=== PATIENT | male | born 1990 | race Caucasian/White ===

== ENCOUNTER 2016-10-09 06:47 | Emergency (ER) | payer OTHER ==
--- NOTE | 2016-10-09 09:45 | ED ORDER SUMMARY ---
..... Patient: ELIECER MONTES OrderSheet [facility] VisitID: [id number] [address] [place] [address] 26y, M Registration Date/Time: 10/09/2016 ORDER SHEET Weight: 172.3 kg (stated) Allergies: No Known Drug Allergy GENERAL ORDERS: CBC w Diff Urgent (07:06 10/09/2016 DDavis R.N. per protocol) (7:06 DDavis R.N.) CMP Urgent (07:06 10/09/2016 DDavis R.N. per protocol) (7:06 DDavis R.N.) Amylase Urgent (07:06 10/09/2016 DDavis R.N. per protocol) (7:06 DDavis R.N.) Lipase Urgent (07:06 10/09/2016 DDavis R.N. per protocol) (7:06 DDavis R.N.) MEDICATION ORDERS: GI Cocktail WHITE PO 30 mL with Lidocaine Viscous Mouth/Throat 15 mL, Maalox Plus Oral 15 mL (NOW) (09:13 10/09/2016 Aliya Davey) (9:22 LSullivan R.N.) IV FLUIDS: IV Saline Lock (07:06 10/09/2016 DDavis R.N. per protocol) (7:06 DDavis R.N.) ORDER SHEET NOTES: [Electronically signed by Tanner Waldrop Dr. (09:52 10/09/2016)] [Electronically signed by Donna Moreno R.N. (10:05 10/13/2016)] [Electronically locked/signed by Donna Moreno R.N. (10:10/13/2016)]
--- NOTE | 2016-10-09 09:45 | ED NURSING NOTES ---
Clinical Report - Nurses [facility] [address] [place] [address] 10/09/2016 6:49 Patient: ELIECER MONTES TRIAGE Triage time 06:55. Acuity: LEVEL 3. Chief Complaint: ABDOMINAL PAIN. Alert. SEPSIS SCREEN: Sepsis Screen. Negative (no infection suspected/documented). [place] COMA SCORE: [place] Coma Scale: 15- eyes open spontaneously (4); best verbal response- oriented x 4 (5); best motor response- obeys commands (6). --07:01 aRul Canseco R.N. 06:55 10/09/16. BP: 134/89. HR: 77 (regular). RR: 20 (regular and unlabored). O2 saturation: 99%. Temp: 97.6 F. Pain level now: 01/03. --07:01 Raul Canseco R.N. Weight: 172.3 kg stated. Height/Length: 73 inches Per Patient. BMI: 50.1. --06:54 Raul Canseco R.N. Medications Citalopram Hydrobromide Oral. --06:56 Raul Canseco R.N. Allergies No Known Drug Allergy. --06:56 Raul Canseco R.N. History Arrived by private vehicle. Historian: patient. Unaccompanied. Onset. (7 days ago). ( with blood tinged). He has had vomiting. The vomiting has been blood-tinged. SOCIAL HX: Heavy tobacco smoker (cigarette)- less than 1 pack per day. Occasional alcohol use. No drug use. No marijuana. No recent travel. ABUSE ASSESSMENT: No report of abuse. SELF HARM ASSESSMENT: A self harm assessment was performed. The patient answered "no" to the question "Have you recently felt down, depressed, or hopeless?", "Have you noticed less interest or pleasure in doing things?", "Do you have thoughts of harming or killing yourself?", "Are you here because you tried to hurt yourself?", "Have you ever tried to hurt yourself before today?" and "Have you recently had thoughts about harming or killing others?". FALL RISK ASSESSMENT: Fall risk assessment completed. No fall risk identified. NUTRITIONAL RISK ASSESSMENT: The nutritional risk assessment revealed no deficiencies. FUNCTIONAL ASSESSMENT: Functional assessment: no impairments noted. LEARNING NEEDS ASSESSMENT: The learning needs assessment revealed no barriers. SKIN INTEGRITY ASSESSMENT: Skin integrity risk assessment completed. No skin integrity risk identified. --07:01 Raul Canseco R.N. PROBLEMS: Depression. --06:58 Raul Canseco R.N. 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 --06:58 Raul Canseco R.N. Interventions ID band on patient. To treatment room. --07:01 Raul Canseco R.N. PHYSICAL ASSESSMENT Ambulatory to room. ( Last BM yesterday, states that it was brown, denies seeing blood in it.). GENERAL / NEURO / PSYCH: Alert. Oriented X 4. HEENT: Mucous membranes are pink. RESPIRATORY: Respirations not labored. Breath sounds within normal limits. CVS: Normal sinus rhythm noted. No abnormal heart sounds. Capillary refill less than 2 seconds. GI / : Abdomen soft. Abdominal tenderness in the upper abdomen and epigastric area. Bowel sounds within normal limits. SKIN: Skin is warm and dry. --07:04 Raul Canseco R.N. NURSING PROGRESS NOTES 07:05 10/09/2016 Site #1 started via IV in the right antecubital space with an 20g angiocath, with aseptic technique and good blood return; one attempt. Blood drawn: rainbow set. Labeled in the presence of the patient and sent to the lab. Saline lock flushed with 10 mL saline. --07:05 Raul Canseco R.N. Patient gowned. Head of bed elevated. Reassurance given. Two patient identifiers checked. Call light placed in reach. Side rails up x 1. Bed placed in lowest position. Brakes of bed on. Patient ready for evaluation- chart flagged. Patient waiting for evaluation. --07:05 Raul Canseco R.N. ( Report given to Donna Alvarez RN, Care transferred to her.). --07:42 Raul Canseco R.N. 07:42. Care transferred and report received. --07:52 Donna Moreno R.N. <<STRICKEN ENTRY-- 09:22 10/09/2016 GI COCKTAIL WHITE (Simethicone) PO 30 mL given. Allergies verified and confirmed 5 rights. --09:22 Donna Moreno R.N. --END STRIKE>> Change to Details. --09:22 Donna Moreno R.N. 09:22 10/09/2016 GI COCKTAIL WHITE (Simethicone) PO 30 mL given. Allergies verified and confirmed 5 rights. (with lidocaine 15 mls). --09:22 Donna Moreno R.N. 09:23 10/09/16. ( Pt ambulated to bathroom after GI cocktail, told not to drink any water.). --09:23 Donna Moreno R.N. 09:37 10/09/16. Overall patient status is improved- he states feels better (Pt states pain is almost completely gone). --09:37 Donna Moreno R.N. DISPOSITION / DISCHARGE late entry -. Departure time: 1012. Condition at departure: improved. No learning barriers present. Discharge instructions provided and reviewed with the patient. Reviewed referral to family practice. Verbalized understanding. Written instructions provided. The patient was discharged home. He left the Emergency Department ambulatory and via private vehicle. FALL RISK ASSESSMENT: Fall risk assessment completed. No fall risk identified. --10:03 Donna Moreno R.N. 10:08 10/09/16. BP: 105/58. HR: 75. RR: 18. O2 saturation: 100%. Temp: deferred. Pain level now: 07/06. --10:03 Donna Moreno R.N. Locked/Released at 10/13/2016 10:05 by Donna Moreno R.N.
--- NOTE | 2016-10-09 09:45 | ED CLINICAL REPORT ---
Clinical Report - Physicians/Mid Levels [facility] [address] [address] 10/09/2016 6:49 Patient: ELIECER MONTES Time Seen: 06:59; initial patient contact. Arrived- By private vehicle. Historian- patient. HISTORY OF PRESENT ILLNESS Chief Complaint: ABDOMINAL PAIN. At its maximum, severity described as moderate. When seen in the E.D., it was almost gone. Modifying factors. Not worsened by anything. Not relieved by anything. It is described as burning. No radiation. It is described as located in the epigastric area. This started about 1 week ago and is still present. It was gradual in onset and has been intermittent. The patient has had nausea, vomiting and diarrhea. No loss of appetite. No recent travel. Similar symptoms previously: None. Recent medical care: Not recently seen/assessed. REVIEW OF SYSTEMS No constipation, black stools, fever or chills. He has had hematemesis. It has occurred twice and has contained blood flecks. All systems otherwise negative, except as recorded above. PAST HISTORY Depression. ASURGERIES: Unknown intestine surgery during infancy. SOCIAL HISTORY Current every day smoker. History of drug use: marijuana. No alcohol use. ADDITIONAL NOTES The nursing notes have been reviewed with agreement regarding the chief complaint, PMH and patient medications and allergies. PHYSICAL EXAM Vital Signs: 10/09/2016 06:55 BP: 134/89. HR: 77. RR: 20. O2 saturation: 99%. Temp: 97.6 F. Pain level now: 7/10. Have been reviewed as normal. Appearance: Alert. Oriented X3. No acute distress. Eyes: Eyes normal inspection. No scleral icterus. ENT: Dry mucous membranes present. CVS: Normal heart rate and rhythm. Heart sounds normal. Respiratory: No respiratory distress. Breath sounds normal. Abdomen: Soft. Mild tenderness in the epigastric area. No guarding, rebound tenderness or Ribeiro's sign present. Bowel sounds normal. No mass. Back: Normal inspection. No CVA tenderness. Skin: Normal skin color. No rash. Extremities: No lower extremity edema. Neuro: Oriented X 3. LABS, X-RAYS, AND EKG Laboratory Tests: CBC w Diff: (SHARON: 10/09/2016 07:02) ( MsgRcvd 10/09/2016 07:13) Final results Test Result Flag Units (Reference) WHITE BLOOD COUNT 7.1 K/uL (4.5-11.5) RED BLOOD COUNT 5.40 M/uL (4.50-5.90) HEMOGLOBIN 15.0 gm/dL (13.5-17.5) HEMATOCRIT 45.3 % (41.0-53.0) MEAN CELL VOLUME 84 fL (80-100) MEAN CORPUSCULAR HGB 28 pg (26-34) MEAN CORPUSCULAR HGB CONC 33 g/dL (31-37) RED CELL DISTRIBUTION WIDTH 13.7 % (11.6-14.8) PLATELET COUNT 206 K/uL (150-400) NEUTROPHIL % 49.1 L % (50-75) LYMPH % 36.5 % (25-40) MONO % 8.5 % (3-14) EOSINOPHIL % 5.3 H % (0-4) BASOPHIL % 0.6 % (0-2) CMP: (SHARON: 10/09/2016 07:02) ( MsgRcvd 10/09/2016 07:28) Final results Test Result Flag Units (Reference) GLUCOSE 103 mg/dL (70-110) BUN 14 mg/dL (7-18) CREATININE 0.8 mg/dL (0.6-1.3) Estimated GFR >60 mL/min Estimated GFR- >60 mL/min Note: Persistent reduction over 3 months in eGFR<60 mL/min/1.73 m2 defines CKD. Patients with eGFR values>=60 mL/min/1.73 m2 may also have CKD if evidence ofpersistent proteinuria. Additional information may be foundat www.kidney.org. SODIUM 143 mmol/L (136-145) POTASSIUM 3.8 mmol/L (3.5-5.1) CHLORIDE 106 mmol/L (98-107) CARBON DIOXIDE 28 mmol/L (21-32) CALCIUM 8.9 mg/dL (8.5-10.1) TOTAL PROTEIN 7.5 g/dL (6.4-8.2) ALBUMIN 3.7 g/dL (3.3-5.0) BILIRUBIN, TOTAL 0.3 mg/dL (0.0-1.0) ALKALINE PHOSPHATASE 55 U/L (46-116) AST (SGOT) 19 U/L (15-37) ALT (SGPT) 36 U/L (12-78) LIPASE 98 U/L (73-393) AMYLASE 24 L U/L (25-115) . PROGRESS AND PROCEDURES Course of Care: GI Cocktail composed of 15 mL viscous lidocaine and antacid PO given. Physical exam findings are improved. Symptoms much better. Disposition: Discharged home in good and improved condition. Condition: good. CLINICAL IMPRESSION Acute viral gastroenteritis. INSTRUCTIONS Your Current Medications: CONTINUE TAKING THE FOLLOWING MEDICATIONS: Citalopram Hydrobromide Oral. Prescription Medications: Zofran (orally disintegrating tablets) 4 mg: take 1 orally every 6 hours as needed for nausea and vomiting. Dispense ten (10). No refill. Substitution is permissible. Zantac 150 mg: take 1 orally every 12 hours. Dispense sixty (60). No refills. Substitution is permissible. Follow-up: Follow up with your doctor in about two days. Call for an appointment. Screening today revealed the patient's blood pressure to be in the pre-hypertensive range. The patient should follow up with a primary care provider for blood pressure management. (Electronically signed by Tanner Waldrop Dr. 10/09/2016 9:52)
--- NOTE | 2016-10-09 09:45 | ED ORDER SUMMARY ---
..... Patient: ELIECER MONTES OrderSheet [facility] VisitID: [id number] [address] [place] [address] 26y, M Registration Date/Time: 10/09/2016 ORDER SHEET Weight: 172.3 kg (stated) Allergies: No Known Drug Allergy GENERAL ORDERS: CBC w Diff Urgent (07:06 10/09/2016 DDavis R.N. per protocol) (7:06 DDavis R.N.) CMP Urgent (07:06 10/09/2016 DDavis R.N. per protocol) (7:06 DDavis R.N.) Amylase Urgent (07:06 10/09/2016 DDavis R.N. per protocol) (7:06 DDavis R.N.) Lipase Urgent (07:06 10/09/2016 DDavis R.N. per protocol) (7:06 DDavis R.N.) MEDICATION ORDERS: GI Cocktail WHITE PO 30 mL with Lidocaine Viscous Mouth/Throat 15 mL, Maalox Plus Oral 15 mL (NOW) (09:13 10/09/2016 Aliya Davey) (9:22 LSullivan R.N.) IV FLUIDS: IV Saline Lock (07:06 10/09/2016 DDavis R.N. per protocol) (7:06 DDavis R.N.) ORDER SHEET NOTES: [Electronically signed by Tanner Waldrop Dr. (09:52 10/09/2016)] [Electronically signed by Donna Moreno R.N. (10:05 10/13/2016)] [Electronically locked/signed by Donna Moreno R.N. (10:10/13/2016)]
--- NOTE | 2016-10-13 10:06 | ED DISCHARGE INSTRUCTIONS ---
Patient: ELIECER MONTES General Instructions [facility] VisitID: [id number] [place] [address] 26y, M Registration Date/Time: 10/09/2016 Acute viral gastroenteritis. INSTRUCTIONS Your Current Medications: CONTINUE TAKING THE FOLLOWING MEDICATIONS: Citalopram Hydrobromide Oral. Prescription Medications: Zofran (orally disintegrating tablets) 4 mg: take 1 orally every 6 hours as needed for nausea and vomiting. Dispense ten (10). No refill. Substitution is permissible. Zantac 150 mg: take 1 orally every 12 hours. Dispense sixty (60). No refills. Substitution is permissible. Follow-up: Follow up with your doctor in about two days. Call for an appointment. Screening today revealed the patient's blood pressure to be in the pre-hypertensive range. The patient should follow up with a primary care provider for blood pressure management. ADDITIONAL INFORMATION Viral Gastroenteritis (6Yr-Adult) Gastroenteritis is another name for thestomach flu.It is most often caused by a virus that affects the stomach and intestinal tract. Symptoms include stomach cramping and fever, vomiting and/or diarrhea, and can last from 2 to 7 days. The danger from repeated vomiting or diarrhea is dehydration. This is the loss of too much water and minerals from the body. When this occurs, body fluids must be replaced. Antibiotics are not effective for this illness, but simple home treatment will be helpful. Home Care If symptoms are severe, rest at home for the next 24 hours. Avoid tobacco, caffeine, and alcohol use, which can worsen symptoms. Acetaminophen (Tylenol) or ibuprofen (Motrin, Advil) may be usedfor fever or pain unless another medication was prescribed. NOTE: If you have chronic liver or kidney disease or ever had a stomach ulcer or GI bleeding, talk with your doctor before using these medicines. Aspirin should never be used in anyone under 18 years of age who is ill with a fever. It may cause severe liver damage. If medicines for diarrhea or vomiting were prescribed, be sure they are takenonly as directed. If vomiting, drink small amounts of clear fluids (such as water, sports drinks, clear sodas) at frequent intervals to prevent dehydration. Start with 1 to 2 tablespoons every 10 minutes. Once vomiting stops, follow these guidelines: During The First 12 To 24 Hours follow the diet below: Beverages: Sport drinks like Gatorade, soft drinks without caffeine; nida bogdan, mineral water (plain or flavored), decaffeinated tea and coffee. Soups: Clear broth, consomm and bouillon Desserts: Plain gelatin (Jell-O), Popsicles and fruit juice bars. During The Next 24 Hours you may add the following to the above: Hot cereal, plain toast, bread, rolls, crackers Plain noodles, rice, mashed potatoes, chicken noodle or rice soup Unsweetened canned fruit (avoid pineapple), bananas Limit fat intake to less than 15 grams per day by avoiding margarine, butter, oils, mayonnaise, sauces, gravies, fried foods, peanut butter, meat, poultry, and fish. Limit fiber; avoid raw or cooked vegetables, fresh fruits (except bananas), and bran cereals. Limit caffeine and chocolate. Do not use spices or seasonings except salt. During The Next 24 Hours The patient can gradually resume a normal diet as symptoms lessen. Preventing Spread Hand washing with soap and water is the best way to prevent the spread of viruses. Caregivers should wash their hands before andafter touching the sick person. The sick person, as well as everyone in the family,should wash their hands after using the toilet and before meals. Clean the toilet after each use. People with diarrhea should not prepare food for others. If you are preparing your own foods, wash your hands before and after. Follow Up with your doctor as advised. Call your doctor if you are not improving over the next 2 to 3 days. If a stool (diarrhea) sample was taken, you may call in 2 days (or as directed) for the results. Get Prompt Medical Attention if any of the following occur: Increasing abdominal pain Continued vomiting (unable to keep liquids down) Frequent diarrhea (more than 5 times a day) Blood in vomit or stool (black or red color) Dark urine, reduced urine output, or extreme thirst Weakness, dizziness, fainting Drowsiness, confusion, stiff neck, or seizure Fever of 100.4F (38C) oral or higher, not better with fever medication New rash Ondansetron Oral disintegrating tablet What is this medicine? ONDANSETRON (on JG se khanh) is used to treat nausea and vomiting caused by chemotherapy. It is also used to prevent or treat nausea and vomiting after surgery. How should I use this medicine? These tablets are made to dissolve in the mouth. Do not try to push the tablet through the foil backing. With dry hands, peel away the foil backing and gently remove the tablet. Place the tablet in the mouth and allow it to dissolve, then swallow. While you may take these tablets with water, it is not necessary to do so. Talk to your gravel weigher regarding the use of this medicine in children. Special care may be needed. What side effects may I notice from receiving this medicine? Side effects that you should report to your doctor or health foster care worker as soon as possible: allergic reactions like skin rash, itching or hives, swelling of the face, lips, or tongue breathing problems dizziness fast or irregular heartbeat feeling faint or lightheaded, falls fever and chills swelling of the hands and feet tightness in the chest Side effects that usually do not require medical attention (report to your doctor or health foster care worker if they continue or are bothersome): constipation or diarrhea headache What may interact with this medicine? Do not take this medicine with any of the following medications: -apomorphine -cisapride -dofetilide -dronedarone -pimozide -thioridazine -ziprasidone This medicine may also interact with the following medications: -carbamazepine -phenytoin -rifampicin -tramadol -other medicines that prolong the QT interval (cause an abnormal heart rhythm) What if I miss a dose? If you miss a dose, take it as soon as you can. If it is almost time for your next dose, take only that dose. Do not take double or extra doses. Where should I keep my medicine? Keep out of the reach of children. Store between 2 and 30 degrees C (36 and 86 degrees F). Throw away any unused medicine after the expiration date. What should I tell my health care provider before I take this medicine? They need to know if you have any of these conditions: heart disease history of irregular heartbeat liver disease low levels of magnesium or potassium in the blood an unusual or allergic reaction to ondansetron, granisetron, other medicines, foods, dyes, or preservatives or trying to get breast-feeding What should I watch for while using this medicine? Check with your doctor or health foster care worker as soon as you can if you have any sign of an allergic reaction. Ranitidine Hydrochloride Oral tablet What is this medicine? RANITIDINE (ra CLAUDIA spencer) is a type of antihistamine that blocks the release of stomach acid. It is used to treat stomach or intestinal ulcers. It can relieve ulcer pain and discomfort, and the heartburn from acid reflux. How should I use this medicine? Take this medicine by mouth with a glass of water. Follow the directions on the prescription label. If you only take this medicine once a day, take it at bedtime. Take your medicine at regular intervals. Do not take your medicine more often than directed. Do not stop taking except on your doctor's advice. Talk to your gravel weigher regarding the use of this medicine in children. Special care may be needed. What side effects may I notice from receiving this medicine? Side effects that you should report to your doctor or health foster care worker as soon as possible: agitation, nervousness, depression, hallucinations allergic reactions like skin rash, itching or hives, swelling of the face, lips, or tongue breast enlargement in both males and females breathing problems redness, blistering, peeling or loosening of the skin, including inside the mouth unusual bleeding or bruising unusually weak or tired vomiting yellowing of the skin or eyes Side effects that usually do not require medical attention (report to your doctor or health foster care worker if they continue or are bothersome): constipation or diarrhea dizziness headache nausea What may interact with this medicine? atazanavir delavirdine gefitinib glipizide ketoconazole midazolam procainamide propantheline triazolam warfarin What if I miss a dose? If you miss a dose, take it as soon as you can. If it is almost time for your next dose, take only that dose. Do not take double or extra doses. Where should I keep my medicine? Keep out of the reach of children. Store at room temperature between 15 and 30 degrees C (59 and 86 degrees F). Protect from light and moisture. Keep container tightly closed. Throw away any unused medicine after the expiration date. What should I tell my health care provider before I take this medicine? They need to know if you have any of these conditions: kidney disease liver disease porphyria an unusual or allergic reaction to ranitidine, other medicines, foods, dyes, or preservatives or trying to get breast-feeding What should I watch for while using this medicine? Tell your doctor or health foster care worker if your condition does not start to get better or gets worse. You may need to take this medicine for several days as prescribed before your symptoms get better. Finish the full course of tablets prescribed, even if you feel better. Do not smoke cigarettes or drink alcohol. These increase irritation in your stomach and can lengthen the time it will take for ulcers to heal. Cigarettes and alcohol can also make acid reflux or heartburn worse. If you get black, tarry stools or vomit up what looks like coffee grounds, call your doctor or health foster care worker at once. You may have a bleeding ulcer. You have been given the following additional information: Gastroenteritis, Viral (6Y-Adult) Ondansetron Oral disintegrating tablet Ranitidine Hydrochloride Oral tablet (Electronically signed by Tanner Waldrop Dr. 10/09/2016 9:52)
--- NOTE | 2016-10-13 10:06 | ED MAR SUMMARY ---
..... Medication Administration Record [facility] [address] [place] [address] Patient: ELIECER MONTES Visit ID: [id number] 26y, M Weight: 172.3 kg Height/Length: 73 in BMI: 50.1 ALLERGIES: No Known Drug Allergy Given 09:22 10/09/2016 Donna Moreno R.N. Medication Administered: GI COCKTAIL WHITE [PO] (SIMETHICONE), Dose: 30 mL PO. Medication Ordered: GI Cocktail WHITE PO 30 mL with Lidocaine Viscous Mouth/Throat 15 mL, Maalox Plus Oral 15 mL (NOW).
--- NOTE | 2016-10-13 10:06 | ED MED RECONCILIATION SUMMARY ---
Patient: ELIECER MONTES Medication Reconciliation Report [facility] VisitID: [id number] [address] [place] [address] 26y, M Registration Date/Time: 10/09/2016 Weight: 172.3 kg Height/Length: 73 in. BMI: 50.1 ALLERGIES: No Known Drug Allergy The patient's Home Medications are listed below: CONTINUE TAKING THE FOLLOWING MEDICATIONS: Citalopram Hydrobromide Oral The source(s) of the original Home Medication information: Not obtained. The following Medications were given to the patient in the Emergency Department: GI COCKTAIL WHITE [PO] PO 30 mL, administered: 10/09/2016 9:22:00 AM The following Medications were prescribed to the patient: Zofran (orally disintegrating tablets) 4 mg: take 1 orally every 6 hours as needed for nausea and vomiting. Dispense ten (10). No refill. Substitution is permissible. -- Tanner Waldrop Dr. Zantac 150 mg: take 1 orally every 12 hours. Dispense sixty (60). No refills. Substitution is permissible. -- Tanner Waldrop Dr.
--- NOTE | 2016-10-13 10:06 | ED DISCHARGE INSTRUCTIONS ---
Patient: ELIECER MONTES General Instructions [facility] VisitID: [id number] [place] [address] 26y, M Registration Date/Time: 10/09/2016 Acute viral gastroenteritis. INSTRUCTIONS Your Current Medications: CONTINUE TAKING THE FOLLOWING MEDICATIONS: Citalopram Hydrobromide Oral. Prescription Medications: Zofran (orally disintegrating tablets) 4 mg: take 1 orally every 6 hours as needed for nausea and vomiting. Dispense ten (10). No refill. Substitution is permissible. Zantac 150 mg: take 1 orally every 12 hours. Dispense sixty (60). No refills. Substitution is permissible. Follow-up: Follow up with your doctor in about two days. Call for an appointment. Screening today revealed the patient's blood pressure to be in the pre-hypertensive range. The patient should follow up with a primary care provider for blood pressure management. ADDITIONAL INFORMATION Viral Gastroenteritis (6Yr-Adult) Gastroenteritis is another name for thestomach flu.It is most often caused by a virus that affects the stomach and intestinal tract. Symptoms include stomach cramping and fever, vomiting and/or diarrhea, and can last from 2 to 7 days. The danger from repeated vomiting or diarrhea is dehydration. This is the loss of too much water and minerals from the body. When this occurs, body fluids must be replaced. Antibiotics are not effective for this illness, but simple home treatment will be helpful. Home Care If symptoms are severe, rest at home for the next 24 hours. Avoid tobacco, caffeine, and alcohol use, which can worsen symptoms. Acetaminophen (Tylenol) or ibuprofen (Motrin, Advil) may be usedfor fever or pain unless another medication was prescribed. NOTE: If you have chronic liver or kidney disease or ever had a stomach ulcer or GI bleeding, talk with your doctor before using these medicines. Aspirin should never be used in anyone under 18 years of age who is ill with a fever. It may cause severe liver damage. If medicines for diarrhea or vomiting were prescribed, be sure they are takenonly as directed. If vomiting, drink small amounts of clear fluids (such as water, sports drinks, clear sodas) at frequent intervals to prevent dehydration. Start with 1 to 2 tablespoons every 10 minutes. Once vomiting stops, follow these guidelines: During The First 12 To 24 Hours follow the diet below: Beverages: Sport drinks like Gatorade, soft drinks without caffeine; nida bogdan, mineral water (plain or flavored), decaffeinated tea and coffee. Soups: Clear broth, consomm and bouillon Desserts: Plain gelatin (Jell-O), Popsicles and fruit juice bars. During The Next 24 Hours you may add the following to the above: Hot cereal, plain toast, bread, rolls, crackers Plain noodles, rice, mashed potatoes, chicken noodle or rice soup Unsweetened canned fruit (avoid pineapple), bananas Limit fat intake to less than 15 grams per day by avoiding margarine, butter, oils, mayonnaise, sauces, gravies, fried foods, peanut butter, meat, poultry, and fish. Limit fiber; avoid raw or cooked vegetables, fresh fruits (except bananas), and bran cereals. Limit caffeine and chocolate. Do not use spices or seasonings except salt. During The Next 24 Hours The patient can gradually resume a normal diet as symptoms lessen. Preventing Spread Hand washing with soap and water is the best way to prevent the spread of viruses. Caregivers should wash their hands before andafter touching the sick person. The sick person, as well as everyone in the family,should wash their hands after using the toilet and before meals. Clean the toilet after each use. People with diarrhea should not prepare food for others. If you are preparing your own foods, wash your hands before and after. Follow Up with your doctor as advised. Call your doctor if you are not improving over the next 2 to 3 days. If a stool (diarrhea) sample was taken, you may call in 2 days (or as directed) for the results. Get Prompt Medical Attention if any of the following occur: Increasing abdominal pain Continued vomiting (unable to keep liquids down) Frequent diarrhea (more than 5 times a day) Blood in vomit or stool (black or red color) Dark urine, reduced urine output, or extreme thirst Weakness, dizziness, fainting Drowsiness, confusion, stiff neck, or seizure Fever of 100.4F (38C) oral or higher, not better with fever medication New rash Ondansetron Oral disintegrating tablet What is this medicine? ONDANSETRON (on JG se khanh) is used to treat nausea and vomiting caused by chemotherapy. It is also used to prevent or treat nausea and vomiting after surgery. How should I use this medicine? These tablets are made to dissolve in the mouth. Do not try to push the tablet through the foil backing. With dry hands, peel away the foil backing and gently remove the tablet. Place the tablet in the mouth and allow it to dissolve, then swallow. While you may take these tablets with water, it is not necessary to do so. Talk to your front end assistant regarding the use of this medicine in children. Special care may be needed. What side effects may I notice from receiving this medicine? Side effects that you should report to your doctor or health rn complex care as soon as possible: allergic reactions like skin rash, itching or hives, swelling of the face, lips, or tongue breathing problems dizziness fast or irregular heartbeat feeling faint or lightheaded, falls fever and chills swelling of the hands and feet tightness in the chest Side effects that usually do not require medical attention (report to your doctor or health rn complex care if they continue or are bothersome): constipation or diarrhea headache What may interact with this medicine? Do not take this medicine with any of the following medications: -apomorphine -cisapride -dofetilide -dronedarone -pimozide -thioridazine -ziprasidone This medicine may also interact with the following medications: -carbamazepine -phenytoin -rifampicin -tramadol -other medicines that prolong the QT interval (cause an abnormal heart rhythm) What if I miss a dose? If you miss a dose, take it as soon as you can. If it is almost time for your next dose, take only that dose. Do not take double or extra doses. Where should I keep my medicine? Keep out of the reach of children. Store between 2 and 30 degrees C (36 and 86 degrees F). Throw away any unused medicine after the expiration date. What should I tell my health care provider before I take this medicine? They need to know if you have any of these conditions: heart disease history of irregular heartbeat liver disease low levels of magnesium or potassium in the blood an unusual or allergic reaction to ondansetron, granisetron, other medicines, foods, dyes, or preservatives or trying to get breast-feeding What should I watch for while using this medicine? Check with your doctor or health rn complex care as soon as you can if you have any sign of an allergic reaction. Ranitidine Hydrochloride Oral tablet What is this medicine? RANITIDINE (ra CLAUDIA spencer) is a type of antihistamine that blocks the release of stomach acid. It is used to treat stomach or intestinal ulcers. It can relieve ulcer pain and discomfort, and the heartburn from acid reflux. How should I use this medicine? Take this medicine by mouth with a glass of water. Follow the directions on the prescription label. If you only take this medicine once a day, take it at bedtime. Take your medicine at regular intervals. Do not take your medicine more often than directed. Do not stop taking except on your doctor's advice. Talk to your front end assistant regarding the use of this medicine in children. Special care may be needed. What side effects may I notice from receiving this medicine? Side effects that you should report to your doctor or health rn complex care as soon as possible: agitation, nervousness, depression, hallucinations allergic reactions like skin rash, itching or hives, swelling of the face, lips, or tongue breast enlargement in both males and females breathing problems redness, blistering, peeling or loosening of the skin, including inside the mouth unusual bleeding or bruising unusually weak or tired vomiting yellowing of the skin or eyes Side effects that usually do not require medical attention (report to your doctor or health rn complex care if they continue or are bothersome): constipation or diarrhea dizziness headache nausea What may interact with this medicine? atazanavir delavirdine gefitinib glipizide ketoconazole midazolam procainamide propantheline triazolam warfarin What if I miss a dose? If you miss a dose, take it as soon as you can. If it is almost time for your next dose, take only that dose. Do not take double or extra doses. Where should I keep my medicine? Keep out of the reach of children. Store at room temperature between 15 and 30 degrees C (59 and 86 degrees F). Protect from light and moisture. Keep container tightly closed. Throw away any unused medicine after the expiration date. What should I tell my health care provider before I take this medicine? They need to know if you have any of these conditions: kidney disease liver disease porphyria an unusual or allergic reaction to ranitidine, other medicines, foods, dyes, or preservatives or trying to get breast-feeding What should I watch for while using this medicine? Tell your doctor or health rn complex care if your condition does not start to get better or gets worse. You may need to take this medicine for several days as prescribed before your symptoms get better. Finish the full course of tablets prescribed, even if you feel better. Do not smoke cigarettes or drink alcohol. These increase irritation in your stomach and can lengthen the time it will take for ulcers to heal. Cigarettes and alcohol can also make acid reflux or heartburn worse. If you get black, tarry stools or vomit up what looks like coffee grounds, call your doctor or health rn complex care at once. You may have a bleeding ulcer. You have been given the following additional information: Gastroenteritis, Viral (6Y-Adult) Ondansetron Oral disintegrating tablet Ranitidine Hydrochloride Oral tablet (Electronically signed by Tanner Waldrop Dr. 10/09/2016 9:52)
--- NOTE | 2016-10-13 10:06 | ED MED RECONCILIATION SUMMARY ---
Patient: ELIECER MONTES Medication Reconciliation Report [facility] VisitID: [id number] [address] [place] [address] 26y, M Registration Date/Time: 10/09/2016 Weight: 172.3 kg Height/Length: 73 in. BMI: 50.1 ALLERGIES: No Known Drug Allergy The patient's Home Medications are listed below: CONTINUE TAKING THE FOLLOWING MEDICATIONS: Citalopram Hydrobromide Oral The source(s) of the original Home Medication information: Not obtained. The following Medications were given to the patient in the Emergency Department: GI COCKTAIL WHITE [PO] PO 30 mL, administered: 10/09/2016 9:22:00 AM The following Medications were prescribed to the patient: Zofran (orally disintegrating tablets) 4 mg: take 1 orally every 6 hours as needed for nausea and vomiting. Dispense ten (10). No refill. Substitution is permissible. -- Tanner Waldrop Dr. Zantac 150 mg: take 1 orally every 12 hours. Dispense sixty (60). No refills. Substitution is permissible. -- Tanner Waldrop Dr.
--- NOTE | 2016-10-13 10:06 | ED MAR SUMMARY ---
..... Medication Administration Record [facility] [address] [place] [address] Patient: ELIECER MONTES Visit ID: [id number] 26y, M Weight: 172.3 kg Height/Length: 73 in BMI: 50.1 ALLERGIES: No Known Drug Allergy Given 09:22 10/09/2016 Donna Moreno R.N. Medication Administered: GI COCKTAIL WHITE [PO] (SIMETHICONE), Dose: 30 mL PO. Medication Ordered: GI Cocktail WHITE PO 30 mL with Lidocaine Viscous Mouth/Throat 15 mL, Maalox Plus Oral 15 mL (NOW).
== END 2016-10-09 10:12 | disposition home or self-care (01) ==
LOC: ED SRH 06:47
DX: A08.4 Viral intestinal infection, unspecified (principal); F17.210 Nicotine dependence, cigarettes, uncomplicated; Z79.899 Other long term (current) drug therapy
CPT/HCPCS: 90100; 92235; 92530; 95059

== ENCOUNTER 2016-10-14 07:26 | Emergency (ER) | payer OTHER ==
--- NOTE | 2016-10-14 08:58 | ED CLINICAL REPORT ---
Clinical Report - Physicians/Mid Levels [facility] [address] [place] [address] 10/14/2016 7:27 Patient: ELIECER MONTES Time Seen: 0740. Arrived- By private vehicle. Historian- patient. HISTORY OF PRESENT ILLNESS Chief Complaint: ABDOMINAL PAIN. At its maximum, severity described as moderate. When seen in the E.D., severity described as moderate. Modifying factors- (reports his pain was relieved with Jarrod cocktail that was given to him here in the emergency department on his last visit.). Not worsened by anything. It is described as burning. No radiation. It is described as located in the epigastric area. This started today and is still present (unchanged). It was abrupt in onset and has been constant but is not gone now. The patient has had nausea. No loss of appetite, vomiting or diarrhea. No additional abdominal pain. No recent travel. Similar symptoms previously: Once. Recent medical care: The patient was seen recently in the emergency department. REVIEW OF SYSTEMS All systems otherwise negative, except as recorded above. PAST HISTORY See nurses notes. Medications: None. Allergies: No Known Drug Allergy. SOCIAL HISTORY Smoker- current status unknown. No alcohol use or drug use. No recent travel. Is a local resident. FAMILY HISTORY Negative. (no known family history of gallstones). ADDITIONAL NOTES The nursing notes have been reviewed. PHYSICAL EXAM Vital Signs: 10/14/2016 07:35 BP: 136/71. HR: 73. RR: 17. O2 saturation: 92%. Temp: 98.3 F. Pain level now: 8/10. Blood pressure normal. Oxygen saturation normal. Appearance: Alert. Oriented X3. No acute distress. Eyes: Pupils equal, round and reactive to light. Eyes normal inspection. No scleral icterus. ENT: Ears normal. Nose normal. Pharynx normal. Neck: Normal inspection. Neck supple. CVS: Normal heart rate and rhythm. Heart sounds normal. Pulses normal. Respiratory: No respiratory distress. Breath sounds normal. Chest nontender. Abdomen: Soft and nontender. Bowel sounds normal. No organomegaly. No mass. (negative Ribeiro's. No tenderness at McBurney's. No rebound or guarding.). Skin: Skin warm and dry. Normal skin color. No rash. Normal skin turgor. Extremities: Extremities exhibit normal ROM. No lower extremity edema. LABS, X-RAYS, AND EKG Laboratory Tests: UA-Culture if indicated: (SHARON: 10/14/2016 07:57) ( [facility] 10/14/2016 08:33) Final results Test Result Flag Units (Reference) URINE COLOR YELLOW URINE APPEARANCE SL CLOUDY URINE GLUCOSE NEGATIVE (NEGATIVE) URINE BILIRUBIN NEGATIVE (NEGATIVE) URINE KETONE NEGATIVE (NEGATIVE) URINE SPECIFIC GRAVITY 1.025 (1.010-1.030) URINE PH 6.0 (5.0-8.0) URINE PROTEIN NEGATIVE (NEGATIVE) URINE UROBILINOGEN 0.2 EU/dL (0.2-1.0) URINE NITRITE NEGATIVE (NEGATIVE) URINE BLOOD NEGATIVE (NEGATIVE) URINE LEUK ESTERASE NEGATIVE (NEGATIVE) URINE RBC 0-1 rbc/hpf (0-1) URINE WBC 5-10 wbc/hpf (0-1) URINE EPITHELIAL CELLS 1-3 EPI/hpf (0-5) URINE BACTERIA MODERATE (2+ TO 3+) (NONE SEEN) URINE COMMENT CULTURE INDICATED URINE CULTURES ARE SET-UP BASED ON THE FOLLOWING CRITERIA:POSITIVE NITRITEPOSITIVE LEUKOCYTE ESTERASEGREATER THAN 10 WHITE BLOOD CELLSMODERATE (2+) OR GREATER BACTERIA CBC w Diff: (SHARON: 10/14/2016 08:11) ( [facility] 10/14/2016 08:28) Final results Test Result Flag Units (Reference) WHITE BLOOD COUNT 8.9 K/uL (4.5-11.5) RED BLOOD COUNT 5.45 M/uL (4.50-5.90) HEMOGLOBIN 15.3 gm/dL (13.5-17.5) HEMATOCRIT 45.5 % (41.0-53.0) MEAN CELL VOLUME 84 fL (80-100) MEAN CORPUSCULAR HGB 28 pg (26-34) MEAN CORPUSCULAR HGB CONC 34 g/dL (31-37) RED CELL DISTRIBUTION WIDTH 13.6 % (11.6-14.8) PLATELET COUNT 215 K/uL (150-400) NEUTROPHIL % 66.4 % (50-75) LYMPH % 21.5 L % (25-40) MONO % 6.8 % (3-14) EOSINOPHIL % 4.6 H % (0-4) BASOPHIL % 0.7 % (0-2) . PROGRESS AND PROCEDURES Course of Care: The patient is a pleasant 26-year-old male presenting for evaluation of epigastric abdominal pain. At this time differential diagnosis includes pancreatitis, acute cholecystitis, gastritis, or reflux. Do not feel that the patient's symptoms at this time are related to abdominal aortic aneurysm. Patient is otherwise young and healthy. Had discussion with the patient in regards to his last visit here in the emergency department. Patient is requesting the same medication that was provided. Had a discussion with the patient in regards to potential factors and worsening his abdominal pain. Patient reports it is a smoker and drinks caffeinated beverages frequently. Patient states that he drinks energy drinks and coffee. Discussed with the patient that if he has gastritis orpeptic ulcer disease by caffeine and smoking will make these worse. Patient will be evaluated with GI cocktail as well as laboratory studies including urinalysis, lipase, and complete blood cell count. Patient is agreeable to the treatment plan. Patient reports no further concerns or questions. The patient's workup was remarkable for the findings above. No acute abnormalities with patient's laboratory studies including urinalysis, CMP, CBC, lipase. Patient is resting in bed and in no acute distress and able to sleep while here in the emergency department. Repeat abdominal exam is benign. I had a discussion with the patient in regards workup here in the emergency department included home ow-up, and return precautions. All questions have been answered. The patient expressed understanding of these instructions and was agreeable to them. Do not feel patient has surgical abdomen. Did not fill patient is admitted to the hospital this time. Do not feel patient requires further emergency department workup/evaluation given the patient's pain has resolved and negative laboratory studies. Disposition: Discharged. Condition: good. CLINICAL IMPRESSION Acute epigastric abdominal pain. 10/14/2016 08:48 HR: 67. O2 saturation: 96%. 10/14/2016 07:35 BP: 136/71. HR: 73. RR: 17. O2 saturation: 92%. Temp: 98.3 F. Pain level now: 8/10. Blood pressure normal. Oxygen saturation normal. Acute gastritis (acute). INSTRUCTIONS Warnings: GENERAL WARNINGS: Return or contact your physician immediately if your condition worsens or changes unexpectedly, if not improving as expected, or if other problems arise. SPECIFICALLY, return if you develop pain, fever, vomiting, the inability to keep fluids down, blood in vomitus, blood in diarrhea, fainting or lightheadedness. Your Current Medications: CONTINUE TAKING THE FOLLOWING MEDICATIONS: None*. Prescription Medications: Carafate 1 gm tablets: take 1 orally every 12 hours as needed for indigestion, upset stomach or heartburn. Dispense thirty (30). No refills. Substitution is permissible. Follow-up: Return to the emergency department as needed. Follow up with your doctor in three days. Reason for referral: recheck today's concerns. Summary of care provided to patient via paper. Screening today revealed the patient's blood pressure to be in the normal range. The patient should follow up with a primary care provider for blood pressure management. Understanding of the discharge instructions verbalized by patient. (Electronically signed by Akash Miguel Dr. 10/16/2016 5:54)
--- NOTE | 2016-10-14 08:58 | ED NURSING NOTES ---
Clinical Report - Nurses [facility] [address] [place] [address] 10/14/2016 7:27 Patient: ELIECER MONTES TRIAGE Triage time 07:35. Acuity: LEVEL 3. Chief Complaint: ABDOMINAL PAIN. 07:49 10/14/16. Alert. No acute distress. SEPSIS SCREEN: Sepsis Screen. Negative (no infection suspected/documented). JUAN R COMA SCORE: Juan R Coma Scale: 15- eyes open spontaneously (4); best verbal response- oriented x 4 (5); best motor response- obeys commands (6). --07:49 Luzma Bansal R.N. 07:35 10/14/16. BP: 136/71. HR: 73. RR: 17. O2 saturation: 92%. Temp: 98.3 F. Pain level now: 02/03. --07:49 Luzma Bansal R.N. Weight: 172.3 kg stated. Height/Length: 74 inches Per Patient. BMI: 48.8. --07:45 Luzma Bansal R.N. Medications None. --07:40 Luzma Bansal R.N. Allergies No Known Drug Allergy. --07:40 Luzma Bansal R.N. History Arrived by private vehicle. Historian: patient. Primary physician (Dr Wyatt ([facility] in [facility]). Patient states he has tried to make an appt with PCP. Appt scheduled for a month from now.). Onset. (around a week ago.). ( Patient states he came to this ED on Tuesday and was given a GI cocktail and nausea meds. Patient reports this relieved the pain that day, but the pain came back the next day.). He has had nausea, vomiting and diarrhea. 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 (tums,). PAST MEDICAL HX: Immunizations: up-to-date. SOCIAL HX: Heavy tobacco smoker- less than 1 pack per day. Occasional alcohol use. No drug use. FALL RISK ASSESSMENT: Fall risk assessment completed. No fall risk identified. NUTRITIONAL RISK ASSESSMENT: The nutritional risk assessment revealed no deficiencies. FUNCTIONAL ASSESSMENT: Functional assessment: no impairments noted. LEARNING NEEDS ASSESSMENT: The learning needs assessment revealed no barriers. SKIN INTEGRITY ASSESSMENT: Skin integrity risk assessment completed. No skin integrity risk identified. --07:49 Luzma Bansal R.N. PROBLEMS: Gastroenteritis. Depression. --07:45 Luzma Bansal R.N. 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 --07:45 Luzma Bansal R.N. Interventions ID band on patient. To treatment room. --07:49 Luzma Bansal R.N. PHYSICAL ASSESSMENT 07:50 10/14/16. GENERAL / NEURO / PSYCH: Alert. Oriented X 4. Appears in no acute distress. HEENT: Mucous membranes are pink. RESPIRATORY: Respirations not labored. Breath sounds within normal limits. CVS: Capillary refill less than 2 seconds. GI / : Abdomen soft. Abdominal tenderness in the epigastric area. Bowel sounds within normal limits. SKIN: Skin is warm and dry. --07:50 Luzma Bansal R.N. Ambulatory to room. --07:50 Luzma Bansal R.N. NURSING PROGRESS NOTES 07:51 10/14/16. Patient gowned. Patient ID band checked for patient name and birthdate: patient confirmed. Instructions provided to collect clean catch urine and patient verbalized understanding. Clean catch urine collected with return of yellow-colored clear urine; sample sent to lab for urinalysis. Specimen labeled in the presence of the patient. Two patient identifiers checked. Call light placed in reach. Side rails up x 1. Bed placed in lowest position. Brakes of bed on. Patient informed about plan of care. --07:51 Luzma Bansal R.N. 08:05 10/14/2016 Site #1 started via IV in the right antecubital space with an 20g angiocath; one attempt. Blood drawn: rainbow set. Labeled in the presence of the patient and sent to the lab. Saline lock flushed with 5 mL saline. --08:15 Luzma Bansal R.N. 08:11 10/14/2016 Started bag #1 1000 mL IV Fluids IV NS (Saline); bolus of 1000 mL wide open via site #1. Allergies verified and confirmed 5 rights. IV patency established. IV site checked: no pain, redness, or swelling. IV flushed thoroughly pre- and post-medication administration. Completed per protocol. --08:16 Luzma Bansal R.N. 08:11 10/14/2016 Zofran (Ondansetron HCl) IVP 4 mg given over 2 minute(s) via site #1. Allergies verified and confirmed 5 rights. IV patency established. IV site checked: no pain, redness, or swelling. IV flushed thoroughly pre- and post-medication administration. IVP given by RN. --08:16 Luzma Bansal R.N. 08:17 10/14/16. Patient ID band checked for patient name and birthdate: patient confirmed. Blood samples drawn from the right antecubital space by nurse per protocol ; labeled in presence of the patient and sent to lab: rainbow set. Line flushed with 5 mL normal saline post blood draw. --08:17 Luzma Bansal R.N. 08:18 10/14/16. ( Discussed patient's motivation for quitting smoking.). --08:18 Luzma Bansal R.N. 08:28 10/14/2016 Maalox (Magnesium-Aluminum) PO Oral Suspension 30 mL given. Allergies verified and confirmed 5 rights. (and viscous lidocaine 2% (20mL)). --08:28 Luzma Bansal R.N. 08:48 10/14/16. Reassessment after fluids administered and medication administered. He is sleeping and has had no adverse reaction. Overall patient status is improved. --08:48 Luzma Bansal R.N. 08:48 10/14/16. HR: 67. O2 saturation: 96%. --08:48 Luzma Bansal R.N. DISPOSITION / DISCHARGE 09:13 10/14/16. Condition at departure: improved. No learning barriers present. Discharge instructions provided and reviewed with the patient. Reviewed medication(s). Treatments reviewed. Reviewed referrals. Reviewed diet. Reviewed need to stop smoking. Patient verbalized understanding. Written instructions provided in Macedonian. The patient was discharged by the physician. He was discharged home. He left the Emergency Department ambulatory and via private vehicle. Patient driving. --09:13 Luzma Bansal R.N. 09:11 10/14/16. BP: 128/63. HR: 90. RR: 18. O2 saturation: 96%. Temp: deferred. Pain level now: 09/03. --09:13 Luzma Bansal R.N. Locked/Released at 10/14/2016 19:19 by Luzma Bansal R.N.
--- NOTE | 2016-10-14 08:58 | ED NURSING NOTES ---
Clinical Report - Nurses [facility] [address] [place] [address] 10/14/2016 7:27 Patient: ELIECER MONTES TRIAGE Triage time 07:35. Acuity: LEVEL 3. Chief Complaint: ABDOMINAL PAIN. 07:49 10/14/16. Alert. No acute distress. SEPSIS SCREEN: Sepsis Screen. Negative (no infection suspected/documented). JUAN R COMA SCORE: Juan R Coma Scale: 15- eyes open spontaneously (4); best verbal response- oriented x 4 (5); best motor response- obeys commands (6). --07:49 Luzma Bansal R.N. 07:35 10/14/16. BP: 136/71. HR: 73. RR: 17. O2 saturation: 92%. Temp: 98.3 F. Pain level now: 02/03. --07:49 Luzma Bansal R.N. Weight: 172.3 kg stated. Height/Length: 74 inches Per Patient. BMI: 48.8. --07:45 Luzma Bansal R.N. Medications None. --07:40 Luzma Bansal R.N. Allergies No Known Drug Allergy. --07:40 Luzma Bansal R.N. History Arrived by private vehicle. Historian: patient. Primary physician (Dr Wyatt ([facility]). Patient states he has tried to make an appt with PCP. Appt scheduled for a month from now.). Onset. (around a week ago.). ( Patient states he came to this ED on Tuesday and was given a GI cocktail and nausea meds. Patient reports this relieved the pain that day, but the pain came back the next day.). He has had nausea, vomiting and diarrhea. 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 PAST MEDICAL HX: Immunizations: up-to-date. SOCIAL HX: Heavy tobacco smoker- less than 1 pack per day. Occasional alcohol use. No drug use. FALL RISK ASSESSMENT: Fall risk assessment completed. No fall risk identified. NUTRITIONAL RISK ASSESSMENT: The nutritional risk assessment revealed no deficiencies. FUNCTIONAL ASSESSMENT: Functional assessment: no impairments noted. LEARNING NEEDS ASSESSMENT: The learning needs assessment revealed no barriers. SKIN INTEGRITY ASSESSMENT: Skin integrity risk assessment completed. No skin integrity risk identified. --07:49 Luzma Bansal R.N. PROBLEMS: Gastroenteritis. Depression. --07:45 Luzma Bansal R.N. 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 --07:45 Luzma Bansal R.N. Interventions ID band on patient. To treatment room. --07:49 Luzma Bansal R.N. PHYSICAL ASSESSMENT 07:50 10/14/16. GENERAL / NEURO / PSYCH: Alert. Oriented X 4. Appears in no acute distress. HEENT: Mucous membranes are pink. RESPIRATORY: Respirations not labored. Breath sounds within normal limits. CVS: Capillary refill less than 2 seconds. GI / : Abdomen soft. Abdominal tenderness in the epigastric area. Bowel sounds within normal limits. SKIN: Skin is warm and dry. --07:50 Luzma Bansal R.N. Ambulatory to room. --07:50 Luzma Bansal R.N. NURSING PROGRESS NOTES 07:51 10/14/16. Patient gowned. Patient ID band checked for patient name and birthdate: patient confirmed. Instructions provided to collect clean catch urine and patient verbalized understanding. Clean catch urine collected with return of yellow-colored clear urine; sample sent to lab for urinalysis. Specimen labeled in the presence of the patient. Two patient identifiers checked. Call light placed in reach. Side rails up x 1. Bed placed in lowest position. Brakes of bed on. Patient informed about plan of care. --07:51 Luzma Bansal R.N. 08:05 10/14/2016 Site #1 started via IV in the right antecubital space with an 20g angiocath; one attempt. Blood drawn: rainbow set. Labeled in the presence of the patient and sent to the lab. Saline lock flushed with 5 mL saline. --08:15 Luzma Bansal R.N. 08:11 10/14/2016 Started bag #1 1000 mL IV Fluids IV NS (Saline); bolus of 1000 mL wide open via site #1. Allergies verified and confirmed 5 rights. IV patency established. IV site checked: no pain, redness, or swelling. IV flushed thoroughly pre- and post-medication administration. Completed per protocol. --08:16 Luzma Bansal R.N. 08:11 10/14/2016 Zofran (Ondansetron HCl) IVP 4 mg given over 2 minute(s) via site #1. Allergies verified and confirmed 5 rights. IV patency established. IV site checked: no pain, redness, or swelling. IV flushed thoroughly pre- and post-medication administration. IVP given by RN. --08:16 Luzma Bansal R.N. 08:17 10/14/16. Patient ID band checked for patient name and birthdate: patient confirmed. Blood samples drawn from the right antecubital space by nurse per protocol ; labeled in presence of the patient and sent to lab: rainbow set. Line flushed with 5 mL normal saline post blood draw. --08:17 Luzma Bansal R.N. 08:18 10/14/16. ( Discussed patient's motivation for quitting smoking.). --08:18 Luzma Bansal R.N. 08:28 10/14/2016 Maalox (Magnesium-Aluminum) PO Oral Suspension 30 mL given. Allergies verified and confirmed 5 rights. (and viscous lidocaine 2% (20mL)). --08:28 Luzma Bansal R.N. 08:48 10/14/16. Reassessment after fluids administered and medication administered. He is sleeping and has had no adverse reaction. Overall patient status is improved. --08:48 Luzma Bansal R.N. 08:48 10/14/16. HR: 67. O2 saturation: 96%. --08:48 Luzma Bansal R.N. DISPOSITION / DISCHARGE 09:13 10/14/16. Condition at departure: improved. No learning barriers present. Discharge instructions provided and reviewed with the patient. Reviewed medication(s). Treatments reviewed. Reviewed referrals. Reviewed diet. Reviewed need to stop smoking. Patient verbalized understanding. Written instructions provided in Setswana. The patient was discharged by the physician. He was discharged home. He left the Emergency Department ambulatory and via private vehicle. Patient driving. --09:13 Luzma Bansal R.N. 09:11 10/14/16. BP: 128/63. HR: 90. RR: 18. O2 saturation: 96%. Temp: deferred. Pain level now: 09/03. --09:13 Luzma Bansal R.N. Locked/Released at 10/14/2016 19:19 by Luzma Bansal R.N.
--- NOTE | 2016-10-14 08:58 | ED ORDER SUMMARY ---
..... Patient: ELIECER MONTES OrderSheet [facility] VisitID: [id number] [place] [address] 26y, M Registration Date/Time: 10/14/2016 ORDER SHEET Weight: 172.3 kg (stated) Allergies: No Known Drug Allergy GENERAL ORDERS: CBC w Diff Urgent (07:48 10/14/2016 Debo Davey) (Ack 7:53 IJurca ER Tech1) (8:14 RMarsden R.N.) CMP Urgent (07:48 10/14/2016 Debo Davey) (Ack 7:53 IJurca ER Tech1) (8:14 RMarsden R.N.) UA-Culture if indicated Urgent (07:48 10/14/2016 Debo Davey) (Ack 7:53 IJurca ER Tech1) (7:55 RMarsden R.N.) Lipase Urgent (07:48 10/14/2016 Debo Davey) (Ack 7:53 IJurca ER Tech1) (8:22 RMarsden R.N.) Pulse oximeter (07:48 10/14/2016 Debo Davey) (Ack 7:53 IJurca ER Tech1) (7:55 RMarsden R.N.) MEDICATION ORDERS: GI Cocktail WHITE PO 30 mL (15 minutes after zofran) (07:47 10/14/2016 Debo Davey) (Ack 8:15 RMarsden R.N.) (8:28 RMarsden R.N.) IV FLUIDS: IV NS : initial bolus 1000 mL (1000 mL/hr), then none - for X1 (NOW) (07:47 10/14/2016 Debo Davey) (Ack 8:15 RMarsden R.N.) (8:16 RMarsden R.N.) Zofran IV 4 mg (NOW) (07:47 10/14/2016 Debo Davey) (Ack 8:15 RMarsden R.N.) (8:16 RMarsden R.N.) ORDER SHEET NOTES: [Electronically signed by Luzma Bansal R.N. (19:19 10/14/2016)] [Electronically signed by Akash Miguel Dr. (05:54 10/16/2016)] [Electronically locked/signed by Luzma Bansal R.N. (:19 10/14/2016)]
--- NOTE | 2016-10-14 08:58 | ED ORDER SUMMARY ---
..... Patient: ELIECER MONTES OrderSheet [facility] VisitID: [id number] [place] [address] 26y, M Registration Date/Time: 10/14/2016 ORDER SHEET Weight: 172.3 kg (stated) Allergies: No Known Drug Allergy GENERAL ORDERS: CBC w Diff Urgent (07:48 10/14/2016 Debo Davey) (Ack 7:53 IJurca ER Tech1) (8:14 RMarsden R.N.) CMP Urgent (07:48 10/14/2016 Debo Davey) (Ack 7:53 IJurca ER Tech1) (8:14 RMarsden R.N.) UA-Culture if indicated Urgent (07:48 10/14/2016 Debo Davey) (Ack 7:53 IJurca ER Tech1) (7:55 RMarsden R.N.) Lipase Urgent (07:48 10/14/2016 Debo Davey) (Ack 7:53 IJurca ER Tech1) (8:22 RMarsden R.N.) Pulse oximeter (07:48 10/14/2016 Debo Davey) (Ack 7:53 IJurca ER Tech1) (7:55 RMarsden R.N.) MEDICATION ORDERS: GI Cocktail WHITE PO 30 mL (15 minutes after zofran) (07:47 10/14/2016 Debo Davey) (Ack 8:15 RMarsden R.N.) (8:28 RMarsden R.N.) IV FLUIDS: IV NS : initial bolus 1000 mL (1000 mL/hr), then none - for X1 (NOW) (07:47 10/14/2016 Debo Davey) (Ack 8:15 RMarsden R.N.) (8:16 RMarsden R.N.) Zofran IV 4 mg (NOW) (07:47 10/14/2016 Debo Davey) (Ack 8:15 RMarsden R.N.) (8:16 RMarsden R.N.) ORDER SHEET NOTES: [Electronically signed by Luzma Bansal R.N. (19:19 10/14/2016)] [Electronically signed by Akash Miguel Dr. (05:54 10/16/2016)] [Electronically locked/signed by Luzma Bansal R.N. (:19 10/14/2016)]
--- NOTE | 2016-10-16 05:54 | ED MED RECONCILIATION SUMMARY ---
Patient: ELIECER MONTES Medication Reconciliation Report [facility] VisitID: [id number] [place] [address] 26y, M Registration Date/Time: 10/14/2016 Weight: 172.3 kg Height/Length: 74 in. BMI: 48.8 ALLERGIES: No Known Drug Allergy The patient's Home Medications are listed below: NONE. The source(s) of the original Home Medication information: Not obtained. The following Medications were given to the patient in the Emergency Department: IV NS IV Fluids bolus 1000 mL wide open, administered: 10/14/2016 8:11:00 AM Zofran [IVP] IVP 4 mg, administered: 10/14/2016 8:11:00 AM Maalox [PO] PO 30 mL, administered: 10/14/2016 8:28:00 AM The following Medications were prescribed to the patient: Carafate 1 gm tablets: take 1 orally every 12 hours as needed for indigestion, upset stomach or heartburn. Dispense thirty (30). No refills. Substitution is permissible. -- Akash Miguel Dr.
--- NOTE | 2016-10-16 05:54 | ED MED RECONCILIATION SUMMARY ---
Patient: ELIECER MONTES Medication Reconciliation Report [facility] VisitID: [id number] [place] [address] 26y, M Registration Date/Time: 10/14/2016 Weight: 172.3 kg Height/Length: 74 in. BMI: 48.8 ALLERGIES: No Known Drug Allergy The patient's Home Medications are listed below: NONE. The source(s) of the original Home Medication information: Not obtained. The following Medications were given to the patient in the Emergency Department: IV NS IV Fluids bolus 1000 mL wide open, administered: 10/14/2016 8:11:00 AM Zofran [IVP] IVP 4 mg, administered: 10/14/2016 8:11:00 AM Maalox [PO] PO 30 mL, administered: 10/14/2016 8:28:00 AM The following Medications were prescribed to the patient: Carafate 1 gm tablets: take 1 orally every 12 hours as needed for indigestion, upset stomach or heartburn. Dispense thirty (30). No refills. Substitution is permissible. -- Akash Miguel Dr.
--- NOTE | 2016-10-16 05:54 | ED DISCHARGE INSTRUCTIONS ---
Patient: ELIECER MONTES [facility] VisitID: [id number] [place] [address] 26y, M Registration Date/Time: 10/14/2016 Acute epigastric abdominal pain. 10/14/2016 08:48 HR: 67. O2 saturation: 96%. 10/14/2016 07:35 BP: 136/71. HR: 73. RR: 17. O2 saturation: 92%. Temp: 98.3 F. Pain level now: 8/10. Blood pressure normal. Oxygen saturation normal. Acute gastritis (acute). INSTRUCTIONS Warnings: GENERAL WARNINGS: Return or contact your physician immediately if your condition worsens or changes unexpectedly, if not improving as expected, or if other problems arise. SPECIFICALLY, return if you develop pain, fever, vomiting, the inability to keep fluids down, blood in vomitus, blood in diarrhea, fainting or lightheadedness. Your Current Medications: CONTINUE TAKING THE FOLLOWING MEDICATIONS: None*. Prescription Medications: Carafate 1 gm tablets: take 1 orally every 12 hours as needed for indigestion, upset stomach or heartburn. Dispense thirty (30). No refills. Substitution is permissible. Follow-up: Return to the emergency department as needed. Follow up with your doctor in three days. Reason for referral: recheck today's concerns. Summary of care provided to patient via paper. Screening today revealed the patient's blood pressure to be in the normal range. The patient should follow up with a primary care provider for blood pressure management. Understanding of the discharge instructions verbalized by patient. ADDITIONAL INFORMATION Abdominal Pain,Uncertain Cause [Male] Based on your visit today, the exact cause of your abdominalpain is not clear. Your exam and tests do not indicate a dangerous cause at this time. However, the signs of a serious problem may take more time to appear. Although your evaluation was reassuring today, sometimes early in the course of many conditions, exam and lab tests can appear normal. Therefore, it is important for you to watch for any new symptoms or worsening of your condition. Causes It may not be obvious what caused your symptoms. Pay attention to things that do seem to make your symptoms worse or better and discuss this with your doctor when you follow up. Diagnosis The evaluation of abdominal pain in the emergency department may onlyrequire an exam by the doctor or it may include blood, urine or imaging studies, depending on many factors. Sometimes exams and tests can identify a cause but in many cases, a clear cause is not found. Further testing at follow up visits may help to suggest a clear diagnosis. Home Care Rest as much as possible until your next exam. Try to avoid any medications (unless otherwise directed by your doctor), foods, activities, or other factors that you may have contributed to your symptoms. Try to eat foods that you know that you have tolerated well in the past. Certain diets may be recommended for some conditions that cause abdominal pain. However, since the cause of your symptoms may not be clear, discuss your diet more with your primary care provider or specialist for further recommendations. Eating several small meals per day as opposed to 2 or 3 larger meals may help. Monitor closely for anything that may make your symptoms worse or better. Pay close attention to symptoms below that may indicate worsening of your condition. Follow Up and Precautions See your doctoras instructed or sooneror if your symptoms are not improving.In some cases, you may need more testing. When to Seek Medical Attention Contact your doctor or see medical attention ifany of the following occur: Pain is becoming worse You are unable to take your medications due to excessive vomiting Swelling of the abdomen Fever of 100.4F (38C) or higher, or as directed by your health care provider Blood in vomit or bowel movements (dark red or black color) Jaundice (yellow color of eyes and skin) New onset of weakness, dizziness or fainting New onset of chest, arm, back, neck or jaw pain Gastritis Versus Ulcer (No Antibiotic Tx) The symptoms of gastritis and peptic ulcer are very similar. Both can cause a dull ache or burning pain in the upper abdomen. Other symptoms include nausea, vomiting, loss of appetite, and belching or bloating. Blood in the vomit or stools (red or black) is a sign of bleeding in the stomach. This requires immediate medical attention. A Peptic Ulcer is an open sore in the lining of the stomach or duodenum (upper intestine). The most common cause of peptic ulcer disease is a bacterial infection (H pylori) in the stomach. Another common cause is taking anti-inflammatory medications (such as ibuprofen, prednisone, and aspirin). Gastritis is an irritation of the stomach lining. It can be acute (recent) or chronic (lasting a long time). Gastritis can be caused by overuse of alcohol or anti-inflammatory medications (such as aspirin, ibuprofen, prednisone). H pyloriinfection can also cause chronic gastritis. Tests for H pyloriare used to screen for bacterial infection. If no infection is found, ulcer and gastritis can be treated by stopping the cause, such as anti-inflammatory medications, alcohol, caffeine, and tobacco, and treating with antacids plus an acid anibal medication. If H pylori infection is found, antibiotics will be prescribed along with an acid anibal. Persons 55 years and older may undergo other tests before treatment is started. Two common tests are used to evaluate your symptoms. An upper GI series is an x-ray taken after you drink a chalky liquid called barium. This coats the stomach and allows an ulcer to show up on the x-ray. Another test is called endoscopy during which a long thin tube called an endoscope is passed down your throat to the stomach. A camera at the end of the scope allows the doctor to view inside the stomach to check the cause of your symptoms. Home Care: Take the prescribed acid anibal medication for the full course of treatment even if you begin to feel better sooner. This medication can take up to several days to fully control your symptoms. If you cant afford the prescribed medication, you can try [id number] acid blockers, such as Pepcid AC, Tagamet, Zantac, or Aciphex. If these do not relieve your symptoms, a stronger acid-anibal can be tried, such as Prilosec OTC. If you have been prescribed an antibiotic to treat H pyloriinfection, finish the full course of medication. Do so even if you begin to feel better sooner. If you stop the medication too soon, the infection can return and be harder to treat. You can use antacids, such as Tums, Rolaids, Mylanta, or Maalox, for pain. This will be useful the first few days after starting acid blockers when the blockers havent started working yet. Follow the directions on the label. Liquid antacids may work better than tablets. Note that antacids can interfere with absorption of certain medications. Specifically, do not take Tagamet (cimetidine), Zantac (ranitidine), or Carafate (sucralfate) within 1 hour of taking an antacid. Talk with your pharmacist if you have any questions. Although foods do not cause an ulcer, symptoms can be worsened by certain foods. Limit or avoid fatty, fried, and spicy foods, as well as coffee, chocolate, mint, and foods with high acid content such as tomatoes and citrus fruit and juices (orange, grapefruit, lemon). Avoid alcohol, caffeine, and tobacco, which can delay healing. Avoid aspirin and anti-inflammatory medications such as ibuprofen (Advil, Motrin) and naproxen (Naprosyn, Aleve). Acetaminophen (Tylenol) is safe to use. Do not take more than the amount listed on the label. Follow Up with your doctor or as advised. Further testing may be needed. If you do not begin to improve over the next 4 days, contact your doctor. If you had tests, youll be notified of any new findings that affect your care. Get Prompt Medical Attention if any of the following occur: Stomach pain gets worse or moves to the lower right abdomen (appendix area) Chest pain appears or gets worse, or spreads to the back, neck, shoulder, or arm Frequent vomiting (cant keep down liquids) Blood in the stool or vomit (red or black in color) Feeling weak or dizzy, fainting, or trouble breathing Fever of 100.4F (38C) or higher, or as directed by your healthcare provider Sucralfate Oral tablet What is this medicine? SUCRALFATE (IZZY piyush fate) helps to treat ulcers of the intestine. How should I use this medicine? Take this medicine by mouth with a glass of water. Follow the directions on the prescription label. This medicine works best if you take it on an empty stomach, 1 hour before meals. Take your doses at regular intervals. Do not take your medicine more often than directed. Do not stop taking except on your doctor's advice. Talk to your manager urgent care regarding the use of this medicine in children. Special care may be needed. What side effects may I notice from receiving this medicine? Side effects that you should report to your doctor or health janitor caretaker as soon as possible: allergic reactions like skin rash, itching or hives, swelling of the face, lips, or tongue difficulty breathing Side effects that usually do not require medical attention (report to your doctor or health janitor caretaker if they continue or are bothersome): back pain constipation drowsy, dizzy dry mouth headache stomach upset, gas trouble sleeping What may interact with this medicine? antacid cimetidine digoxin ketoconazole phenytoin quinidine ranitidine some antibiotics like ciprofloxacin, norfloxacin, and ofloxacin theophylline thyroid hormones warfarin What if I miss a dose? If you miss a dose, take it as soon as you can. If it is almost time for your next dose, take only that dose. Do not take double or extra doses. Where should I keep my medicine? Keep out of the reach of children. Store at room temperature between 15 and 30 degrees C (59 and 86 degrees F). Keep container tightly closed. Throw away any unused medicine after the expiration date. What should I tell my health care provider before I take this medicine? They need to know if you have any of these conditions: kidney disease an unusual or allergic reaction to sucralfate, other medicines, foods, dyes, or preservatives or trying to get breast-feeding What should I watch for while using this medicine? Visit your doctor or health janitor caretaker for regular check ups. Let your doctor know if your symptoms do not improve or if you feel worse. Antacids should not be taken within one half hour before or after this medicine. You have been given the following additional information: Abdominal Pain, Unknown Cause, (Male) Gastritis Vs. Ulcer Sucralfate Oral tablet (Electronically signed by Akash Miguel Dr. 10/16/2016 5:54)
--- NOTE | 2016-10-16 05:54 | ED MAR SUMMARY ---
..... Medication Administration Record [facility] [address] [place] [address] Patient: ELIECER MONTES Visit ID: [id number] 26y, M Weight: 172.3 kg Height/Length: 74 in BMI: 48.8 ALLERGIES: No Known Drug Allergy Start 08:11 10/14/2016 Luzma Bansal RAna Cristina Medication Administered: IV NS (SALINE), Dose: IV Fluids, Bolus: 1000 mL wide open, Dispensed: 1000 mL bag, Site: #1 right AC. Medication Ordered: IV NS : initial bolus 1000 mL (1000 mL/hr), then none - for X1 (NOW). Given 08:10/14/2016 Luzma Bansal R.N. Medication Administered: ZOFRAN [IVP] (ONDANSETRON HCL), Dose: 4 mg IVP over 2 minute(s), Site: #1 right AC. Medication Ordered: Zofran IV 4 mg (NOW). Given 08:10/14/2016 Luzma Bansal RFabianaN. Medication Administered: MAALOX [PO] (MAGNESIUM-ALUMINUM), Dose: 30 mL Oral Suspension PO. Medication Ordered: GI Cocktail WHITE PO 30 mL (15 minutes after zofran).
--- NOTE | 2016-10-16 05:54 | ED MAR SUMMARY ---
..... Medication Administration Record [facility] [address] [place] [address] Patient: ELIECER MONTES Visit ID: [id number] 26y, M Weight: 172.3 kg Height/Length: 74 in BMI: 48.8 ALLERGIES: No Known Drug Allergy Start 08:11 10/14/2016 Luzma Bansal RAna Cristina Medication Administered: IV NS (SALINE), Dose: IV Fluids, Bolus: 1000 mL wide open, Dispensed: 1000 mL bag, Site: #1 right AC. Medication Ordered: IV NS : initial bolus 1000 mL (1000 mL/hr), then none - for X1 (NOW). Given 08:10/14/2016 Luzma Bansal R.N. Medication Administered: ZOFRAN [IVP] (ONDANSETRON HCL), Dose: 4 mg IVP over 2 minute(s), Site: #1 right AC. Medication Ordered: Zofran IV 4 mg (NOW). Given 08:10/14/2016 Luzma Bansal RFabianaN. Medication Administered: MAALOX [PO] (MAGNESIUM-ALUMINUM), Dose: 30 mL Oral Suspension PO. Medication Ordered: GI Cocktail WHITE PO 30 mL (15 minutes after zofran).
== END 2016-10-14 09:13 | disposition home or self-care (01) ==
LOC: ED SRH 07:26
DX: K29.00 Acute gastritis without bleeding (principal); F17.219 Nicotine dependence, cigarettes, with unspecified nicotine-induced disorders
CPT/HCPCS: 90004; 90100; 90469; 92235; 95059